=== PATIENT | female | born 1965 | race Caucasian/White ===

== ENCOUNTER 2019-06-20 06:28 | Day surgery (SDC) | payer MEDICAID ==
[2019-06-12 12:14] LABS: BASOPHILS # (AUTO) 0.1 X10'3 (0-0.2); BASOPHILS % (AUTO) 0.9 % (0-1); EOSINOPHILS # (AUTO) 0.2 X10'3 (0-0.9); EOSINOPHILS % (AUTO) 2.4 % (0-6); LYMPHOCYTES # (AUTO) 2.4 X10'3 (1.1-4.8); LYMPHOCYTES % (AUTO) 26.1 % (21-51); MEAN CORPUSCULAR HEMOGLOBIN 28.6 PG (27.0-31.0); MEAN CORPUSCULAR HGB CONC 33.2 g/dL (33.0-36.5); MEAN PLATELET VOLUME 7.9 FL (7.4-10.4); MONOCYTES # (AUTO) 0.6 X10'3 (0-0.9); MONOCYTES % (AUTO) 6.9 % (2-12); NEUTROPHILS # (AUTO) 5.7 X10'3 (1.8-7.7); NEUTROPHILS % (AUTO) 63.7 % (42-75); PRE OP HEMATOCRIT 39.4 % (35.0-45.0); PRE OP HEMOGLOBIN 13.1 g/dL (12.0-16.0); PRE OP PLATELET COUNT 406 X10'3 (140-440); RED BLOOD COUNT 4.58 X10'6 (4.20-5.60); RED CELL DISTRIBUTION WIDTH 14.9 % (11.5-14.5)
[2019-06-12 12:32] LABS: ALBUMIN 3.7 G/DL (3.4-5.0); ALBUMIN/GLOBULIN RATIO 1.1 (1.1-1.5); ALKALINE PHOSPHATASE 84 IU/L (46-116); BLOOD UREA NITROGEN 17 MG/DL (7-18); BUN/CREATININE RATIO 18.7 (6.6-38.0); CALCIUM 8.8 MG/DL (8.5-10.1); CHLORIDE 104 MMOL/L (99-107); CREATININE 0.91 MG/DL (0.40-0.90); PRE OP ALT 18 U/L (30-65); PRE OP ANION GAP 6 (8-16); PRE OP AST 13 U/L (10-37); PRE OP BILIRUB, TOTAL 0.4 MG/DL (0.0-1.0); PRE OP GLUCOSE 89 MG/DL (70-104); PRE OP POTASSIUM 3.9 MMOL/L (3.4-5.1); PRE OP SODIUM 139 MMOL/L (135-145); eGFR 64 ML/MIN
[~2019-06-20] VITALS: Ht 154.9 cm; Wt 78.9 kg
[2019-06-20] VITALS (7 sets, daily range): BP systolic 116–132; BP diastolic 64–77
[~2019-06-20 06:28] MED LIST: ATOR10TA87 PO; BUPR150T8 PO; DOCUMENT DATE & TIME OF BETA-BLOCKER PO ONE; ESTR0.5T PO; LANS15CA10 PO; LISI40TA4 PO; LORA10TA61 PO; MEDR2.5T PO; NAPR250T4 PO; PROP10TA10 PO; ceFAZolin/D5W- 1GM premix 50 ML IV SCH; famotidine 20mg tablet PO ONE; ringers solution, lacted 1,000 ML IV SCH
[2019-06-20] MEDS ORDERED: LIDOcaine 0.5% (5mg/ml) 50ml vial ONE (07:07)
[2019-06-20] MEDS ORDERED: BUPIVAcaine/PF 2.5mg/ml (0.25%) 10ml vial ONE (08:14)
[2019-06-20] MEDS ORDERED: ringers solution, lacted 1,000 ML IV SCH (08:19)
[2019-06-20] MEDS ORDERED: ondansetron/PF 4mg/2ml inj IV PRN (08:20)
[2019-06-20] MEDS ORDERED: hydrALAZINE 20mg/ml inj. IV PRN (08:20)
[2019-06-20] MEDS ORDERED: fentaNYL/PF 50MCG/1 ML 2ML syringe IV PRN ×2 (08:20)
[2019-06-20] MEDS ORDERED: meperidine/PF 25mg/ml syringe IV PRN ×2 (08:20)
[2019-06-20] MEDS ORDERED: labetalol 20mg/4ml (5mg/ml) syringe IV PRN (08:20)
[2019-06-20] MEDS ORDERED: fentaNYL/PF 50MCG/1 ML 2ML syringe ONE (08:24)
[2019-06-20] MEDS ORDERED: MIDAZolam 5mg/5ml vial ONE (08:25)
[2019-06-20] MEDS ORDERED: propofol 10mg/ml 20ml vial IV ONE (08:29)
--- NOTE | 2019-06-20 09:00 | NUR ---
Received from OR via [facility], accompanied by Anesthesiologist DR RENEE and report given by Anesthesiologist. 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 Addendum: 06/20/19 at 0932 by Aleisha Sanchez RN Amended: Links added.
--- NOTE | 2019-06-20 10:00 | NUR ---
D/C INSTRUCTIONS GIVEN AND GONE OVER W/PT WHO VERBALIZES UNDERSTANDING, PT D/CD TO HOME VIA W/C TO PRIVATE VEHICLE W/O INCIDENT. Addendum: 06/20/19 at 1024 by Aleisha Sanchez RN Amended: Links added.
== END 2019-06-20 10:00 | disposition home or self-care (01) ==
LOC: PAS 06:28
PROVIDERS: ATTEND Orthopaedic Surgery Hand Surgery
DX: M65.341 Trigger finger, right ring finger (principal); K21.9 Gastro-esophageal reflux disease without esophagitis; I10 Essential (primary) hypertension; F32.9 Major depressive disorder, single episode, unspecified; M19.90 Unspecified osteoarthritis, unspecified site; E66.9 Obesity, unspecified; Z68.34 Body mass index [BMI] 34.0-34.9, adult; Z87.442 Personal history of urinary calculi; Z88.5 Allergy status to narcotic agent; Z88.2 Allergy status to sulfonamides; Z91.09 Other allergy status, other than to drugs and biological substances; Z98.890 Other specified postprocedural states; Z79.899 Other long term (current) drug therapy
CPT/HCPCS: 26055; 36415; 80053; 82948; 85025; 93005; J0690; J2001; J2250; J2704; J3010; J3490; A4215; J7120

== ENCOUNTER 2023-10-29 09:02 | Day surgery (SDC) | payer MEDICAID ==
[2023-10-25 15:25] LABS: BASOPHILS # (AUTO) 0.1 X10'3 (0-0.2); BASOPHILS % (AUTO) 0.5 % (0-1); EOSINOPHILS # (AUTO) 0.6 X10'3 (0-0.9); EOSINOPHILS % (AUTO) 5.6 % (0-6); LYMPHOCYTES # (AUTO) 3.6 X10'3 (1.1-4.8); LYMPHOCYTES % (AUTO) 33.9 % (21-51); MEAN CORPUSCULAR HEMOGLOBIN 26.4 PG (27.0-31.0); MEAN CORPUSCULAR HGB CONC 32.6 g/dL (33.0-36.5); MEAN CORPUSCULAR VOLUME 80.9 FL (78-98); MEAN PLATELET VOLUME 8.1 FL (7.4-10.4); MONOCYTES # (AUTO) 0.7 X10'3 (0-0.9); MONOCYTES % (AUTO) 6.7 % (2-12); NEUTROPHILS # (AUTO) 5.6 X10'3 (1.8-7.7); NEUTROPHILS % (AUTO) 53.3 % (42-75); PRE OP HEMATOCRIT 37.1 % (35.0-45.0); PRE OP HEMOGLOBIN 12.1 g/dL (12.0-16.0); PRE OP PLATELET COUNT 424 X10'3 (140-440); PRE OP WHITE BLOOD COUNT 10.5 10'3 (4.8-10.8); RED BLOOD COUNT 4.59 X10'6 (4.20-5.60); RED CELL DISTRIBUTION WIDTH 17.1 % (11.5-14.5)
[2023-10-25 15:42] LABS: ALBUMIN 3.3 G/DL (3.4-5.0); ALBUMIN/GLOBULIN RATIO 0.8 (1.1-1.5); ALKALINE PHOSPHATASE 98 IU/L (46-116); BLOOD UREA NITROGEN 17 MG/DL (7-18); BUN/CREATININE RATIO 19.3 (10.0-20.0); CALCIUM 9.1 MG/DL (8.5-10.1); CHLORIDE 106 MMOL/L (99-107); CREATININE 0.88 MG/DL (0.40-0.90); PRE OP ALT 22 U/L (30-65); PRE OP ANION GAP 6 (8-16); PRE OP AST 9 U/L (10-37); PRE OP BILIRUB, TOTAL 0.3 MG/DL (0.0-1.0); PRE OP GLUCOSE 97 MG/DL (70-104); PRE OP POTASSIUM 3.6 MMOL/L (3.4-5.1); PRE OP SODIUM 142 MMOL/L (135-145); TOTAL CARBON DIOXIDE 30.4 MMOL/L (24-32); TOTAL PROTEIN 7.5 G/DL (6.4-8.2); eGFR 66 ML/MIN
[~2023-10-29] VITALS: Ht 154.9 cm; Wt 82.5 kg
[2023-10-29] VITALS (7 sets, daily range): BP systolic 107–133; BP diastolic 62–78; PULSE 66–100; RESP 12–16; TEMP 97.7; O2SAT 95–100
[2023-10-29] MEDS: cefazolin 2gm/D5W 100mL 100 ML IV ONE (05:30)
[~2023-10-29 09:02] MED LIST changes: +BUPIVAcaine/PF 2.5mg/ml (0.25%) 10ml vial ONE; -ESTR0.5T PO; +ESTR0.5T36 PO; -LANS15CA10 PO; +LANS15CA14 PO; +LIDOcaine 2% (20mg/ml) 5ml vial ONE; -LISI40TA4 PO; +LOSA50TA64 PO; -MEDR2.5T PO; -NAPR250T4 PO; -ceFAZolin/D5W- 1GM premix 50 ML IV SCH; -famotidine 20mg tablet PO ONE; -ringers solution, lacted 1,000 ML IV SCH
[2023-10-29] MEDS: ringers solution, lacted 1,000 ML IV SCH (09:33)
[2023-10-29] MEDS: famotidine 20mg tablet PO ONE (09:33)
[2023-10-29] MEDS ORDERED: ondansetron/PF 4mg/2ml inj IV PRN (09:50)
[2023-10-29] MEDS ORDERED: labetalol 20mg/4ml (5mg/ml) syringe IV PRN (09:50)
[2023-10-29] MEDS ORDERED: fentaNYL/PF 50MCG/1 ML 2ML syringe IV PRN ×2 (09:50)
[2023-10-29] MEDS ORDERED: ringers solution, lacted 1,000 ML IV SCH (09:50)
[2023-10-29] MEDS ORDERED: propofol 10mg/ml 20ml vial IV ONE (11:18)
[2023-10-29] MEDS: BUPIVAcaine/PF 2.5mg/ml (0.25%) 10ml vial ONE (11:34)
[2023-10-29] MEDS: LIDOcaine 2% (20mg/ml) 5ml vial ONE (11:35)
[2023-12-07] MEDS ORDERED: ATOR40TA PO (14:40)
[2023-12-07] MEDS ORDERED: BUPR-319 PO (14:40)
[2023-12-07] MEDS ORDERED: LANS30TA10 PO (14:40)
[2023-12-07] MEDS ORDERED: PROP40TA72 PO (14:40)
== END 2023-10-29 12:31 | disposition home or self-care (01) ==
LOC: PAS 09:02
PROVIDERS: ATTEND Orthopaedic Surgery Hand Surgery
DX: M65.331 Trigger finger, right middle finger (principal); K21.9 Gastro-esophageal reflux disease without esophagitis; F32.A Depression, unspecified; Z87.442 Personal history of urinary calculi; E78.5 Hyperlipidemia, unspecified; Z88.2 Allergy status to sulfonamides; Z88.6 Allergy status to analgesic agent; Z98.890 Other specified postprocedural states
CPT/HCPCS: 26055; 36415; 80053; 82948; 85025; J0690; J2704; J3490; J7030; J7120; Z7506; Z7512; A4215; A6449

== ENCOUNTER 2023-12-10 09:58 | Day surgery (SDC) | payer MEDICAID ==
[2023-12-06 14:52] LABS: BASOPHILS # (AUTO) 0.1 X10'3 (0-0.2); BASOPHILS % (AUTO) 0.8 % (0-1); EOSINOPHILS # (AUTO) 0.5 X10'3 (0-0.9); EOSINOPHILS % (AUTO) 4.8 % (0-6); LYMPHOCYTES # (AUTO) 3.1 X10'3 (1.1-4.8); LYMPHOCYTES % (AUTO) 31.6 % (21-51); MEAN CORPUSCULAR HEMOGLOBIN 26.2 PG (27.0-31.0); MEAN CORPUSCULAR HGB CONC 32.5 g/dL (33.0-36.5); MEAN CORPUSCULAR VOLUME 80.6 FL (78-98); MEAN PLATELET VOLUME 8.3 FL (7.4-10.4); MONOCYTES # (AUTO) 0.6 X10'3 (0-0.9); NEUTROPHILS # (AUTO) 5.5 X10'3 (1.8-7.7); NEUTROPHILS % (AUTO) 56.8 % (42-75); PRE OP HEMATOCRIT 38.6 % (35.0-45.0); PRE OP HEMOGLOBIN 12.5 g/dL (12.0-16.0); PRE OP PLATELET COUNT 458 X10'3 (140-440); PRE OP WHITE BLOOD COUNT 9.8 10'3 (4.8-10.8); RED BLOOD COUNT 4.78 X10'6 (4.20-5.60); RED CELL DISTRIBUTION WIDTH 17.1 % (11.5-14.5)
[2023-12-06 15:11] LABS: ALBUMIN 3.6 G/DL (3.4-5.0); ALBUMIN/GLOBULIN RATIO 0.9 (1.1-1.5); ALKALINE PHOSPHATASE 104 IU/L (46-116); BLOOD UREA NITROGEN 17 MG/DL (7-18); BUN/CREATININE RATIO 18.1 (10.0-20.0); CALCIUM 9.2 MG/DL (8.5-10.1); CHLORIDE 106 MMOL/L (99-107); CREATININE 0.94 MG/DL (0.40-0.90); PRE OP ALT 27 U/L (30-65); PRE OP ANION GAP 6 (8-16); PRE OP AST 14 U/L (10-37); PRE OP BILIRUB, TOTAL 0.4 MG/DL (0.0-1.0); PRE OP GLUCOSE 103 MG/DL (70-104); PRE OP POTASSIUM 3.8 MMOL/L (3.4-5.1); PRE OP SODIUM 139 MMOL/L (135-145); TOTAL CARBON DIOXIDE 27.2 MMOL/L (24-32); TOTAL PROTEIN 7.6 G/DL (6.4-8.2); eGFR 61 ML/MIN
[~2023-12-10] VITALS: Ht 154.9 cm; Wt 82.3 kg
[2023-12-10] VITALS (8 sets, daily range): BP systolic 112–132; BP diastolic 70–80; PULSE 87–104; RESP 12–16; TEMP 98.2; O2SAT 96–98
[2023-12-10] MEDS: cefazolin 2gm/D5W 100mL 100 ML IV ONE (05:30)
[2023-12-10] MEDS: DOCUMENT DATE & TIME OF BETA-BLOCKER PO ONE (05:30)
[~2023-12-10 09:58] MED LIST changes: -ATOR10TA87 PO; +ATOR40TA PO; +BUPR-319 PO; -BUPR150T8 PO; -DOCUMENT DATE & TIME OF BETA-BLOCKER PO ONE; -ESTR0.5T36 PO; -LANS15CA14 PO; +LANS30TA10 PO; +LIDOcaine 1% 30ml preserv. free vial ONE; -PROP10TA10 PO; +PROP40TA72 PO
[2023-12-10] MEDS: famotidine 20mg tablet PO ONE (10:42)
[2023-12-10] MEDS: ringers solution, lacted 1,000 ML IV SCH (10:42)
[2023-12-10] MEDS ORDERED: fentaNYL/PF 50MCG/1 ML 2ML syringe ONE (10:58)
[2023-12-10] MEDS ORDERED: midazolam 1 mg/ML 2ml injection ONE (10:59)
[2023-12-10] MEDS ORDERED: LIDOcaine 2% (20mg/ml) 5ml vial ONE (11:07)
[2023-12-10] MEDS: BUPIVAcaine/PF 5 MG/ML 10ML VIAL SQ ONE (11:15)
[2023-12-10] MEDS ORDERED: triamcinolone acetonide 40mg/ml inj ONE (11:20)
== END 2023-12-10 12:38 | disposition home or self-care (01) ==
LOC: PAS 09:58
PROVIDERS: ATTEND Orthopaedic Surgery Hand Surgery
DX: M65.322 Trigger finger, left index finger (principal); M65.352 Trigger finger, left little finger; M65.331 Trigger finger, right middle finger; I10 Essential (primary) hypertension; E66.9 Obesity, unspecified; E78.5 Hyperlipidemia, unspecified; F32.A Depression, unspecified; K21.9 Gastro-esophageal reflux disease without esophagitis; J45.909 Unspecified asthma, uncomplicated; Z87.442 Personal history of urinary calculi; Z79.2 Long term (current) use of antibiotics; Z79.899 Other long term (current) drug therapy; Z90.89 Acquired absence of other organs; Z98.890 Other specified postprocedural states; Z68.34 Body mass index [BMI] 34.0-34.9, adult; Z88.2 Allergy status to sulfonamides; Z88.5 Allergy status to narcotic agent; Z88.8 Allergy status to other drugs, medicaments and biological substances
CPT/HCPCS: 20550; 26055; 36415; 80053; 82948; 85025; A6222; J0690; J2250; J3010; J3301; J3490; J7030; J7120; Z7506; Z7512; A4215; A6449; J0665